=== PATIENT | male | born 1965 ===

== ENCOUNTER 2020-08-26 09:43 | Outpatient (REF) | payer OTHER, SELFPAY ==
[2020-08-26 11:06] LABS: MANUAL DIFF FLAG NO
[2020-08-26 11:22] LABS: Basophils Percent Auto 0.4 % (0-2); Eosinophils Absolute Auto 0.7 X10*3/uL (0.0-0.4); Eosinophils Percent Auto 7.4 % (0-4); Hematocrit 38.6 % (42-52); Hemoglobin 12.9 g/dl (14.0-18.0); Imm Gran Abs Auto 0.02 X10*3/uL (0.00-0.03); Imm Gran Pct Auto 0.2 % (0.0-0.4); Lymphocytes Absolute Auto 4.2 X10*3/uL (1.2-4.9); Lymphocytes Percent Auto 46.1 % (20-40); Mean Corpuscular HGB Conc 33.4 g/dl (31.0-36.0); Mean Corpuscular Hemoglobin 30.7 pg (27.0-33.0); Mean Corpuscular Volume 91.9 fL (80-98); Mean Platelet Volume 11.7 fL (9.4-12.4); Monocytes Percent Auto 10.8 % (2-11); Neutrophils Absolute Auto 3.2 X10*3/uL (2.0-8.3); Neutrophils Percent Auto 35.1 % (45-73); Platelet Count 211 X10*3/uL (160-400); Red Cell Distribution Width 12.6 % (11.0-16.0); White Blood Count 9.2 X10*3/uL (4.8-10.8)
[2020-08-26 11:44] LABS: Anion Gap 11 (12-20); Blood Urea Nitrogen 13 mg/dL (9-16); Calcium 8.7 mg/dL (8.4-10.2); Carbon Dioxide 23 mmol/L (22-29); Chloride 107 mmol/L (96-108); Cholesterol 146 mg/dL; Estimated Glomerular Filt Rate > 60; Glucose Fasting 89 mg/dL (60-99); HDL Cholesterol 41 mg/dL; LDL Cholesterol Calculated 90 mg/dl; Potassium 4.1 mmol/l (3.3-5.1); Sodium 137 mmol/L (135-145); Triglycerides 75 mg/dL
== END 2020-08-26 09:44 | disposition home or self-care (01) ==
LOC: HO.HMGCLDS 09:43
PROVIDERS: PCP Internal Medicine; Visit Provider Internal Medicine
DX: J45.909 Unspecified asthma, uncomplicated (principal); I10 Essential (primary) hypertension; R10.13 Epigastric pain; Z91.09 Other allergy status, other than to drugs and biological substances
CPT/HCPCS: 36415; 80048; 80061; 85025

== ENCOUNTER 2024-01-30 14:17 | Outpatient (AMB) | payer OTHER, SELFPAY ==
[2024-01-30 14:24] VITALS: BP 120/90; PULSE 117; TEMP 36.4; O2SAT 97; BMI 24.2
--- NOTE | 2024-01-30 14:24 | MHC.OFFWIV ---
Intake Vital Signs 01/30/24 14:24 Height 5 ft 10 in Weight 169 lb BMI 24.2 BP 120/90 H Blood Pressure Location Lt brachial Position Sitting Pulse 117 H Pulse Source Pulse Oximeter Temp 97.5 F Temp Source Temporal Artery Scan Pulse Oximetry (%) 97 Oxygen Delivery Method Room Air Intake Visit Reasons: EP Back Pain , bad headache, numb fingers Intake Note: pt is here today for back pain bad headahe numb fingers started 5 days ago Patient Tobacco Use Status: Never used Tobacco Allergies No Known Allergies Allergy (Verified 01/30/24 14:28) Do you need a note to return to daycare/school/sports/work: Yes HPI HPI Comments History of Present Illness Details 58 y/o male patient who presents to walk in clinic with c/o lower back pain x 4 days now. Denies any trauma or injury. [facility] Medical History Asthma, moderate Dyspepsia Ear pain, right Environmental allergies Hypertension, essential Red eyes Social History Alcohol intake: never Patient Tobacco Use Status: Never used Tobacco Review of Systems Const All systems reviewed & are unremarkable except as noted in HPI and below Physical Exam Vital Signs: Last Vital Signs Temp 97.5 F 01/30/24 14:24 Pulse 117 H 01/30/24 14:24 BP 120/90 H 01/30/24 14:24 Pulse Ox 97 01/30/24 14:24 Oxygen Delivery Method Room Air 01/30/24 14:24 BMI result Body Mass Index 24.2 Const General: comfortable and no acute distress Orientation/consciousness: patient oriented x3 Back/Spine/Pelvis Back: back tenderness Thoracic/Lumbar Spine: thoraco-lumbar ROM normal, kyphosis, thoraco-lumbar spasm, thoracic spinal tenderness and lumbar spinal tenderness Neuro General: patient oriented x3, gait normal and moves all extremities Psych Speech and movement: Normal speech and movement present Assessment & Plan Assessment & Plan (1) Low back pain: Code(s): M54.50 - Low back pain, unspecified Qualifiers: Back pain laterality: midline Chronicity: chronic Sciatica presence: without sciatica Qualified Code(s): M54.50 - Low back pain, unspecified; G89.29 - Other chronic pain Plan: - Rest - Ibuprofen for pain relief - PT Orders: Orders PT Evaluation and Treatment Today G89.29 - Other chronic pain, M54.50 - Low back pain, unspecified Medications: New ibuprofen 600 mg PO Q6H PRN 20 tabs 0RF pain G89.29 - Other chronic pain, M54.50 - Low back pain, unspecified metaxalone 800 mg PO TID 20 tabs 0RF G89.29 - Other chronic pain, M54.50 - Low back pain, unspecified lidocaine 5% leave on most painful area for up to 12 hrs 1 patch topical DAILY 15 ea 0RF G89.29 - Other chronic pain, M54.50 - Low back pain, unspecified Coding Level of Care Code Est Pt Level 3 (20905) Diagnoses Chronic midline low back pain without sciatica M54.50; G89.29 Back pain laterality: midline Chronicity: chronic Sciatica presence: without sciatica Time Spent (min) 15
== END 2024-01-30 16:34 | disposition home or self-care (01) ==
PROVIDERS: PCP Internal Medicine; Visit Provider Nurse Practitioner Family
DX: M54.50 Low back pain, unspecified (principal); G89.29 Other chronic pain
CPT/HCPCS: 99213

== ENCOUNTER 2024-02-05 10:14 | Outpatient (AMB) | payer OTHER, SELFPAY ==
--- NOTE | 2024-02-05 10:15 | MHC.PC.OV ---
Vital Signs 02/05/24 10:16 02/05/24 10:48 Height 5 ft 10 in Weight 166 lb BMI 23.8 BP 110/70 Blood Pressure Location Rt brachial Position Sitting Pulse 101 H 90 Pulse Source Pulse Oximeter Auscultation Pulse Oximetry (%) 99 Oxygen Delivery Method Room Air Intake Visit Reasons: PHOTOGRAPHIC TECHNICIAN appt Intake Note: Pt is here today as a New [facility]ateint to [facility] Allergies No Known Allergies Allergy (Verified 02/05/24 10:40) Medication List - Last Reconciled 02/05/24 by VINI Noguera cholecalciferol (vitamin D3) 25 mcg PO DAILY fluticasone propionate 50 mcg/actuation (Flovent Diskus) 1 inh inhalation Q12H 30 days fluticasone propionate 50 mcg/actuation 1 spray intranasal .at night PRN lisinopril 20 mg PO DAILY meloxicam 15 mg PO DAILY metaxalone 800 mg PO TID naphazoline-pheniramine 0.025-0.3 % (Naphcon-A) 1 drp ophthalmic (eye) BID PRN 30 days prednisone 40 mg (2 x 20 mg) PO DAILY Tobacco use date assessed: 02/05/24 Dental Screening Dental Screen Date: 02/05/24 Did you have a dental visit in the last 12 months?: No Was dental information given to patient?: No HPI HPI Comments History of Present Illness Details Patient is a 58-year-old male here who I am meeting for the 1st time. He has a past medical history significant for eczema, asthma, dyspepsia, hypertension. Will order fasting labs today. Patient does not know when his last Tdap shot was will offer today. Patient declined. Patient has declined colonoscopy. He has a chief complaint of lower back pain and left-sided SI pain. Patient states that he fell 2 years prior has developed chronic pain since then. Was seen for similar issue in the walk-in clinic 5 days prior. Was given referral to Physical therapy and ibuprofen, as well as metaxalone with mild relief. Patient denies numbness, but states he has pain that radiates down his left leg. Denies any recent trauma to the area, but states the pain has been worse over the last 2 weeks. Physical exam patient has pronounced kyphosis. Has lumbar paraspinal muscle tenderness in left SI tenderness. Positive straight leg on left side. Denies any numbness or tingling. States feels more like a burning sensation. Patient was given referral to physical therapy by walk-in provider which he has not yet started. Will obtain x-ray. Will give meloxicam and prednisone. [facility] Medical History Asthma, moderate Dyspepsia Ear pain, right Environmental allergies Hypertension, essential Red eyes Social History Housing: Apartment Alcohol intake: never Patient Tobacco Use Status: Never used Tobacco e-Cigarette/Vaping Use: Never Used service: No Current occupational status: employed Cognitive needs: No Hearing needs: No Vision needs: Yes Questionnaire PHQ-9 Over the last 2 weeks, how often have you been bothered by any of the following problems? 1. Little interest or pleasure in doing things: not at all 2. Feeling down, depressed, or hopeless: not at all 3. Trouble falling or staying asleep, or sleeping too much: not at all 4. Feeling tired or having little energy: not at all 5. Poor appetite or overeating: not at all 6. Feeling bad about yourself - or that you are a failure or have let yourself or your family down: not at all 7. Trouble concentrating on things, such as reading the newspaper or watching television: not at all 8. Moving or speaking so slowly that other people could have noticed. Or the opposite - being so fidgety or restless that you have been moving around a lot more than usual: not at all 9. Thoughts that you would be better off or of hurting yourself in some way: not at all Total score: 0 Depression Screening Interpretation: Negative Depression Screening Done: Yes 28401 - PHQ-9 Billing: Yes Source: Developed by Drs. Max Rudd, Bhargavi Rushing, Hima Loya and colleagues, with an educational ivanna from [employer]. Thrive Questionnaire Date Thrive assessed: 02/05/24 I am a: Patient What is your living situation today?: I have a steady place to live Within the past 12 months, did the food you bought not last and you didn't have the money to get more?: Never true Within the past 12 months, did you worry whether your food would run out before you got money to buy more?: Never true Do you have trouble paying for medicines?: No Do you have trouble getting transportation to medical appointments?: Yes Do you have trouble paying your heating and electricity bill?: No Do you have trouble taking care of your child, family member or friend?: No Do you have trouble with day-to-day activities such as bathing, preparing meals, shopping, managing finances, etc.?: No Are you currently unemployed and looking for a job?: No Are you interested in more education?: No THRIVE Score: 1 AUDIT C Alcohol Use Questionnaire (AUDIT-C) 1. How often do you have a drink containing alcohol?: Never Total Score: 0 SKIP-7 AMB Questionnaire SKIP-7 Date SKIP - 7 assessed: 02/05/24 Feeling nervous, anxious, or on edge: 0 = Not at all Not being able to stop or control worryin = Not at all Worrying too much about different things: 0 = Not at all Trouble relaxin = Not at all Being so restless that it is hard to sit still: 0 = Not at all Becoming easily annoyed or irritable: 0 = Not at all Feeling afraid as if something awful might happen: 0 = Not at all Total SKIP-7 score (0-4 normal; 5-9 mild; 10-14 moderate; 15-21 severe): 0 Source: Developed by Drs. Max Rudd, Bhargavi Rushing, Hima Loya and colleagues, with an educational ivanna from [employer]. Review of Systems Const All systems reviewed & are unremarkable except as noted in HPI and below Physical exam (Primary Care) Care Plan Goal for BP management: Blood pressure is controlled. BMI result Body Mass Index 23.8 Tobacco/Smoking Status: Tobacco use Status Patient Tobacco Use Status Never used Tobacco 01/30/24 14:46 Depression Screening Interpretation: Negative Const Other: Appearance: Alert.? Oriented X3.? No acute distress.? Head: Normocephalic. CVS: Normal heart rate and rhythm.? Pulses normal.? Respiratory: No respiratory distress.? Breath sounds normal.? Skin: Skin warm and dry.? Normal skin color.? Normal skin turgor.? Extremities: No lower extremity edema.? Back: No midline tenderness, no C-spine tenderness, limited range of motion to rotation and flexion/extension. +Kyphosis. +straight leg test left side, no CVA tenderness bilaterally Neuro: Oriented X 3.? No motor deficit.? No sensory deficit. CN 2-12 intact Assessment and Plan Assessment & Plan (1) Lower back pain: Comment: Will obtain x-rays. Patient has physical therapy referral in. Will give meloxicam and prednisone. Will also refer to be either spine or pain management depending on x-ray results Code(s): M54.50 - Low back pain, unspecified Qualifiers: Chronicity: acute Back pain laterality: bilateral Sciatica presence: with sciatica Sciatica laterality: sciatica of left side Qualified Code(s): M54.42 - Lumbago with sciatica, left side (2) Chronic left sacroiliac joint pain: Comment: Will obtain x-ray. Will refer to pain management. Code(s): M53.3 - Sacrococcygeal disorders, not elsewhere classified; G89.29 - Other chronic pain Orders: Orders PSA,Total (Free>4and<10) Today Z12.5 - Encounter for screening for malignant neoplasm of prostate UA CC w/rflx Micro + Cult Today Z13.89 - Encounter for screening for other disorder Lipid Panel 1 Month Z13.220 - Encounter for screening for lipoid disorders XR lumbar spine 2-3V Today M54.50 - Low back pain, unspecified Hemoglobin A1c Today Z13.1 - Encounter for screening for diabetes mellitus Comprehensive Met. Panel Today Z91.89 - Other specified personal risk factors, not elsewhere classified Complete Blood Count Auto Diff Today Z13.0 - Encounter for screening for diseases of the blood and blood-forming organs and certain disorders involving the immune mechanism Vitamin D 25-OH (D2 and D3) Today Z13.21 - Encounter for screening for nutritional disorder Vitamin B6 Today Z13.21 - Encounter for screening for nutritional disorder Vitamin B12 Today Z13.21 - Encounter for screening for nutritional disorder TSH reflex Free T4 Today Z13.29 - Encounter for screening for other suspected endocrine disorder XR sacroiliac joint 1-2V Today G89.29 - Other chronic pain, M53.3 - Sacrococcygeal disorders, not elsewhere classified Medications: New meloxicam 15 mg PO DAILY 20 tabs 0RF prednisone 40 mg (2 x 20 mg) PO DAILY 10 tabs 0RF Discontinued ibuprofen Discontinued Reason: Doctor's Order 600 mg PO Q6H PRN 20 tabs 0RF pain G89.29 - Other chronic pain, M54.50 - Low back pain, unspecified Coding Level of Care Code Est Pt Level 3 (30330) Diagnoses Acute bilateral low back pain with left-sided sciatica M54.42 Chronicity: acute Back pain laterality: bilateral Sciatica presence: with sciatica Sciatica laterality: sciatica of left side Chronic left sacroiliac joint pain M53.3; G89.29 Time Spent (min) 27
[2024-02-05 10:16] VITALS: BP 110/70; PULSE 101; O2SAT 99; BMI 23.8
[2024-02-05 10:48] VITALS: PULSE 90
== END 2024-02-05 11:28 | disposition home or self-care (01) ==
LOC: HO.HMGC 10:14
PROVIDERS: PCP Internal Medicine; Visit Provider Nurse Practitioner Primary Care
DX: M54.42 Lumbago with sciatica, left side (principal); M53.3 Sacrococcygeal disorders, not elsewhere classified; G89.29 Other chronic pain
CPT/HCPCS: 99213

== ENCOUNTER 2024-02-05 10:47 | Outpatient (REF) | payer OTHER, SELFPAY ==
--- NOTE | ~2024-02-05 | XR_ITS ---
EXAMINATION: XR LUMBAR SPINE XR SACROILIAC JOINTS CLINICAL INFORMATION: Low back pain, sacrococcygeal disorders not otherwise classified. COMPARISON: None available. TECHNIQUE: 3 views of the lumbar spine. 3 views of the bilateral sacroiliac joints. FINDINGS: LUMBAR SPINE: Dextroscoliosis of the lumbar spine. Advanced degenerative changes in the imaged lower thoracic spine. Facet arthritis in the [id number] lumbar spine. Severe compression deformity of superior endplate of the L3 vertebral body of indeterminate age. Loss of disc space height and hypertrophic change at L2-L3. Advanced degenerative changes with loss of disc space height and subchondral sclerosis most notable also at L1-L2, L2-L3, L3-L4. Mild degenerative changes at L4-L5 and L5-S1. BILATERAL SACROILIAC JOINTS: Moderate degenerative changes with sclerosis and narrowing in the right sacroiliac joint. Mild degenerative changes in the left sacroiliac joint. XR/XR sacroiliac joint 1-2V IMPRESSION: 1. Severe compression deformity of superior endplate of the L3 vertebral body of indeterminate age. 2. Advanced multilevel degenerative changes in the lumbar spine. 3. Moderate degenerative changes in the right sacroiliac joint. Mild degenerative changes in the left sacroiliac joint.
--- NOTE | ~2024-02-05 | XR_ITS ---
EXAMINATION: XR LUMBAR SPINE XR SACROILIAC JOINTS CLINICAL INFORMATION: Low back pain, sacrococcygeal disorders not otherwise classified. COMPARISON: None available. TECHNIQUE: 3 views of the lumbar spine. 3 views of the bilateral sacroiliac joints. FINDINGS: LUMBAR SPINE: Dextroscoliosis of the lumbar spine. Advanced degenerative changes in the imaged lower thoracic spine. Facet arthritis in the [id number] lumbar spine. Severe compression deformity of superior endplate of the L3 vertebral body of indeterminate age. Loss of disc space height and hypertrophic change at L2-L3. Advanced degenerative changes with loss of disc space height and subchondral sclerosis most notable also at L1-L2, L2-L3, L3-L4. Mild degenerative changes at L4-L5 and L5-S1. BILATERAL SACROILIAC JOINTS: Moderate degenerative changes with sclerosis and narrowing in the right sacroiliac joint. Mild degenerative changes in the left sacroiliac joint. XR/XR lumbar spine 2-3V IMPRESSION: 1. Severe compression deformity of superior endplate of the L3 vertebral body of indeterminate age. 2. Advanced multilevel degenerative changes in the lumbar spine. 3. Moderate degenerative changes in the right sacroiliac joint. Mild degenerative changes in the left sacroiliac joint.
[2024-02-05 13:25] LABS: MANUAL DIFF FLAG NO
[2024-02-05 13:33] LABS: Basophils Percent Auto 0.4 % (0-2); Eosinophils Absolute Auto 0.1 X10*3/uL (0.0-0.4); Eosinophils Percent Auto 0.7 % (0-4); Hematocrit 41.3 % (42.0-52.0); Hemoglobin 13.9 g/dl (14.0-18.0); Imm Gran Abs Auto 0.04 X10*3/uL (0.00-0.03); Imm Gran Pct Auto 0.5 % (0.0-0.4); Lymphocytes Absolute Auto 0.5 X10*3/uL (1.2-4.9); Lymphocytes Percent Auto 7.2 % (20-40); Mean Corpuscular HGB Conc 33.7 g/dl (31.0-36.0); Mean Corpuscular Hemoglobin 30.8 pg (27.0-33.0); Mean Corpuscular Volume 91.6 fL (80.0-98.0); Mean Platelet Volume 10.3 fL (9.4-12.4); Monocytes Absolute Auto 0.2 X10*3/uL (0.1-1.2); Monocytes Percent Auto 2.4 % (2-11); Neutrophils Absolute Auto 6.5 x10*3/uL (2.0-8.3); Neutrophils Percent Auto 88.8 % (45-73); Platelet Count 255 X10*3/uL (160-400); Red Blood Count 4.51 X10*6/uL (4.60-5.80); Red Cell Distribution Width 12.5 % (11.0-16.0); White Blood Count 7.4 X10*3/uL (4.8-10.8)
[2024-02-05 13:45] LABS: Estimated Average Glucose 114 mg/dL; Hemoglobin A1c % 5.6 % (<6.0)
[2024-02-05 13:54] LABS: Alanine Aminotransferase 30 U/L (0-40); Albumin Level 3.8 g/dL (3.5-5.0); Alkaline Phosphatase 95 U/L (39-117); Anion Gap 14 (12-20); Aspartate Amino Transferase 18 U/L (5-37); Bilirubin Total 0.4 mg/dL (0.0-1.0); Blood Urea Nitrogen 17 mg/dL (9-16); Calcium 8.9 mg/dL (8.4-10.2); Carbon Dioxide 21 mmol/L (22-29); Chloride 103 mmol/L (96-108); Estimated Glomerular Filt Rate > 60; Glucose Random 132 mg/dL (60-115); Potassium 3.8 mmol/L (3.3-5.1); Sodium 134 mmol/L (135-145); Total Protein 6.5 g/dL (6.5-8.0)
[2024-02-05 13:57] LABS: Appearance Urine Clear; Color Urine Yellow; Glucose Urine UA Negative (Negative); Leukocyte Esterase Urine Negative (Negative); Nitrite Urine Negative (Negative); PH 6.5 (5.0-9.0); Specific Gravity - Urine 1.015 (1.005-1.025); Urine Blood Negative (Negative); Urine Ketones Negative (Negative); Urine Protein Negative (Neg-Trace)
[2024-02-05 14:02] LABS: PSA,Total (Free>4and<10) 1.06 ng/mL (0.00-4.00)
[2024-02-05 14:08] LABS: Vitamin B12 436 pg/mL (200-900)
[2024-02-05 14:12] LABS: TSH reflex Free T4 0.59 uIU/mL (0.32-4.0)
[2024-02-10 17:04] LABS: Vitamin D 25-OH, D2 <4 ng/mL; Vitamin D 25-OH, D3 21 ng/mL; Vitamin D 25-OH, Total 21 ng/mL (30-100)
[2024-02-13 15:49] LABS: Vitamin B6 15.2 ng/mL (2.1-21.7)
== END 2024-02-05 10:48 | disposition home or self-care (01) ==
LOC: HO.HMGCX 10:47
PROVIDERS: PCP Nurse Practitioner Primary Care; Visit Provider Nurse Practitioner Primary Care
DX: M53.3 Sacrococcygeal disorders, not elsewhere classified (principal); G89.29 Other chronic pain; M54.50 Low back pain, unspecified; Z13.21 Encounter for screening for nutritional disorder; Z13.89 Encounter for screening for other disorder; Z12.5 Encounter for screening for malignant neoplasm of prostate; Z13.29 Encounter for screening for other suspected endocrine disorder; Z13.1 Encounter for screening for diabetes mellitus; Z91.89 Other specified personal risk factors, not elsewhere classified; Z13.0 Encounter for screening for diseases of the blood and blood-forming organs and certain disorders involving the immune mechanism
CPT/HCPCS: 36415; 72100; 72200; 80053; 81003; 82306; 82607; 83036; 84153; 84207; 84443; 85025